=== PATIENT | female | born 1970 | race Hispanic/Latino ===

== ENCOUNTER 2019-02-24 16:41 | Emergency (ER) | payer SELFPAY | END 2019-02-24 17:19 | disposition home or self-care (01) | LOC: NAV ERS 16:41 | DX: S67.01XA Crushing injury of right thumb, initial encounter (principal); F41.9 Anxiety disorder, unspecified; F32.9 Major depressive disorder, single episode, unspecified; Z79.899 Other long term (current) drug therapy; W23.0XXA Caught, crushed, jammed, or pinched between moving objects, initial encounter | CPT/HCPCS: 99283 ==

== ENCOUNTER 2019-04-11 09:16 | Emergency (ER) | payer SELFPAY | END 2019-04-11 10:25 | disposition home or self-care (01) | LOC: NAV ERS 09:16 | DX: J10.1 Influenza due to other identified influenza virus with other respiratory manifestations (principal); F41.9 Anxiety disorder, unspecified; F32.9 Major depressive disorder, single episode, unspecified; Z87.891 Personal history of nicotine dependence; Z79.899 Other long term (current) drug therapy | CPT/HCPCS: 87804; 99283 ==

== ENCOUNTER 2019-04-14 12:06 | Emergency (ER) | payer SELFPAY ==
[2019-04-14] MEDS ORDERED: Ondansetron PF 4 MG/2 ML Vial ONE (12:40)
[2019-04-14] MEDS ORDERED: Sodium Chloride 0.9% 1,000 ML ONE (12:41)
[2019-04-14] MEDS ORDERED: Acetaminophen 325 MG TAB ONE (12:41)
[2019-04-14 12:53] LABS: #Lymphocytes 1.2 thou/uL (1.20-3.40); #Monocytes 0.4 thou/uL (0.11-0.59); #Neutrophils 1.8 thou/uL (1.40-6.50); %Basophils 0.9 % (0.0-1.0); %Eosinophils 0.2 % (0.0-10.0); %Lymphocytes 36.1 % (21.0-51.0); %Monocytes 10.1 % (0.0-10.0); %Neutrophils 52.7 % (42.0-75.0); Hemoglobin 13.5 g/dL (12.0-16.0); Mean Corpuscular HGB CONC 33.3 g/dL (32.0-36.0); Mean Corpuscular Hemoglobin 29.6 pg (27.0-31.0); Mean Corpuscular Volume 88.9 fL (78.0-98.0); Mean Platelet Volume 7.9 fL (7.4-10.4); Platelet Count 215 thou/uL (130-400); RBC Distribution Width 12.5 % (11.5-14.5); Red Blood Cell (RBC) Count 4.57 mill/uL (4.20-5.40); White Blood Cell (WBC) Count 3.4 thou/uL (4.8-10.8)
[2019-04-14 13:09] LABS: ALT (SGPT) 26 U/L (8-55); AST (SGOT) 25 U/L (5-34); Albumin 3.9 g/dL (3.5-5.0); Alkaline Phosphatase 89 U/L (40-110); Anion Gap 14 mmol/L (10-20); BUN (Urea Nitrogen) 11 mg/dL (7.0-18.7); Bilirubin, Total 0.4 mg/dL (0.2-1.2); Calc. Creatinine Clearance 0 mL/min (70-130); Calcium 8.3 mg/dL (7.8-10.44); Carbon Dioxide 25 mmol/L (22-29); Chloride 103 mmol/L (98-107); Estimated GFR-MDRD 87; Globulin 3.6 g/dL (2.4-3.5); Glucose 102 mg/dL (70-105); Potassium 3.3 mmol/L (3.5-5.1); Protein, Total 7.5 g/dL (6.0-8.3); Sodium 139 mmol/L (136-145)
[2019-04-14] MEDS ORDERED: Potassium Chloride 20 MEQ TAB ONE (13:19)
== END 2019-04-14 13:50 | disposition home or self-care (01) ==
LOC: NAV ERS 12:06
DX: J10.1 Influenza due to other identified influenza virus with other respiratory manifestations (principal); E87.6 Hypokalemia; R11.2 Nausea with vomiting, unspecified; F41.9 Anxiety disorder, unspecified; F32.9 Major depressive disorder, single episode, unspecified; Z87.891 Personal history of nicotine dependence; Z79.899 Other long term (current) drug therapy
CPT/HCPCS: 36415; 80053; 85025; 96361; 96374; J2405; J7050

== ENCOUNTER 2020-08-19 11:54 | Emergency (ER) | payer SELFPAY ==
[2020-08-20 02:07] LABS: SARS-CoV-2 PCR by NAA DETECTED (NotDetected)
== END 2020-08-19 12:41 | disposition home or self-care (01) ==
LOC: NAV ERS 11:54
DX: U07.1 COVID-19 (principal); J06.9 Acute upper respiratory infection, unspecified; Z87.891 Personal history of nicotine dependence
CPT/HCPCS: 87635; 99283; U0003; U0005

== ENCOUNTER 2024-06-23 09:30 | Emergency (ER) | payer OTHER, SELFPAY ==
[2024-06-23] MEDS ORDERED: Acetaminophen 500 MG TAB ONE (09:47)
== END 2024-06-23 09:57 | disposition home or self-care (01) ==
LOC: NAV ERS 09:30
DX: T20.17XA Burn of first degree of neck, initial encounter (principal); T31.0 Burns involving less than 10% of body surface; Z87.891 Personal history of nicotine dependence; X04.XXXA Exposure to ignition of highly flammable material, initial encounter
CPT/HCPCS: 99283